=== PATIENT | male | born 1960 | race Caucasian/White ===

== ENCOUNTER 2025-02-10 05:36 | Inpatient (IN) | payer OTHER ==
[~2025-02-10] VITALS: Ht 172.7 cm; Wt 81.4 kg
[~2025-02-10 05:36] MED LIST: EZET10TA57 PO; FLUT16SP NASAL; RINGERS SOLUTION,LACTATED 1,000 ML IV ONE; TAMS0.4C94 PO
[2025-02-10 06:21] LABS: BASOPHILS % (AUTO) 0.6 % (0.0-2.0); EOSINOPHILS % (AUTO) 1.4 % (1.0-6.0); HEMATOCRIT 45.5 % (41-53); HEMOGLOBIN 15.5 g/dL (13.5-17.5); LYMPHOCYTES # (AUTO) 1.5 K/uL (1.0-4.8); LYMPHOCYTES % (AUTO) 29.3 % (22.0-44.0); MEAN CORPUSCULAR HEMOGLOBIN 30.9 pg (26.0-34.0); MEAN CORPUSCULAR VOLUME 91 fL (80-100); MONOCYTES # (AUTO) 0.4 K/uL (0.1-1.0); MONOCYTES % (AUTO) 6.9 % (2.0-9.0); NEUTROPHILS # (AUTO) 3.2 K/uL (1.8-7.7); NEUTROPHILS % (AUTO) 61.8 % (40.0-70.0); PLATELET COUNT (AUTO) 295 K/uL (150-450); RED CELL DISTRIBUTION WIDTH 12.5 % (11.5-14.5); WHITE BLOOD COUNT (AUTO) 5.1 K/uL (4.5-11.0)
[2025-02-10 06:30] LABS: ANION GAP 8 mmol/L (8-16); CALCIUM, TOTAL 8.7 mg/dL (8.8-10.5); CARBON DIOXIDE 30 mmol/L (22-29); CHLORIDE 105 mmol/L (98-107); GLOMERULAR FILTR. RATE CALC > 60 mL/min (>60); GLUCOSE,RANDOM 113 mg/dL (70-110); POTASSIUM 4.5 mmol/L (3.5-5.1); SODIUM SERUM 143 mmol/L (136-145); UREA NITROGEN, BLOOD 17 mg/dL (7-18)
[2025-02-10] MEDS: CHLORHEXIDINE GLUCONATE 2% TOWELETTE [2'S/6'S] TP ONE (06:32)
[2025-02-10] MEDS: RINGERS SOLUTION,LACTATED 1,000 ML IV ONE (06:32)
[2025-02-10] MEDS: ETHYL ALCOHOL 62% ANTISEPTIC NASAL SANITIZER 0.6 ML AMPUL NASAL ONE (06:32)
[2025-02-10] MEDS: BUPIVACAINE LIPOSOME/PF 1.3%-13.3MG/ML SUSP 20 ML VIAL INJ ONE (06:45)
[2025-02-10] MEDS ORDERED: VANCOMYCIN HCL 1 GM VIAL ONE (06:48)
[2025-02-10] MEDS ORDERED: MEPERIDINE-PF 25 MG/ML VIAL IVP PRN (07:15)
[2025-02-10] MEDS: CELECOXIB 200 MG CAPSULE PO ONE (07:21)
[2025-02-10] MEDS: BUPIVACAINE HCL/PF 0.5% 30 ML VIAL ONE (07:50)
[2025-02-10] MEDS: OXYGEN THERAPY IH SCH (08:00)
[2025-02-10] MEDS ORDERED: ZOLPIDEM TARTRATE 5 MG TABLET PO PRN (08:00)
[2025-02-10] MEDS ORDERED: ONDANSETRON HCL 4 MG/2 ML VIAL IVP PRN (08:00)
[2025-02-10] MEDS ORDERED: CYCLOBENZAPRINE HCL 10 MG TABLET PO PRN (08:00)
[2025-02-10] MEDS ORDERED: RINGERS SOLUTION,LACTATED 1,000 ML IV ONE (08:49)
[2025-02-10] MEDS ORDERED: BENZOCAINE/MENTHOL [CEPACOL] LOZENGE PO PRN (09:30)
[2025-02-10] MEDS ORDERED: MAG HYDROX/ALUMINUM HYD/SIMETH 30 ML SUSPENSION UDCUP PO PRN (09:30)
[2025-02-10] MEDS ORDERED: DiphenhydrAMINE HCL 50 MG/ML VIAL IVP PRN (09:30)
[2025-02-10] MEDS ORDERED: FentaNYL CITRATE PF 100 MCG/2 ML VIAL ONE (09:46)
[2025-02-10] MEDS: FentaNYL CITRATE PF 100 MCG/2 ML VIAL IVP PRN (09:47)
[2025-02-10] MEDS ORDERED: HYDROmorphone HCL 2 MG/ML SYRINGE ONE (09:59)
[2025-02-10] MEDS: HYDROmorphone HCL 2 MG/ML SYRINGE IVP PRN ×2 (10:05→13:59)
[2025-02-10] MEDS ORDERED: ACETAMINOPHEN/ISO-OSM 1000 MG/100 ML BOTTLE IV ONE (12:00)
[2025-02-10] MEDS ORDERED: METOPROLOL TARTRATE 5 MG/5 ML VIAL IVP ONE (12:00)
[2025-02-10] MEDS ORDERED: CeFAZolin SODIUM 1 GM VIAL IVP ONE (12:00)
[2025-02-10] MEDS ORDERED: SUGAMMADEX SODIUM 200 MG/2 ML VIAL IVP ONE (12:00)
[2025-02-10] MEDS ORDERED: TRANEXAMIC ACID 1,000 MG/10 ML VIAL IVP ONE (12:00)
[2025-02-10] MEDS ORDERED: ROCURONIUM BROMIDE 10 MG/ML 5 ML VIAL IVP ONE (12:00)
[2025-02-10] MEDS ORDERED: 0.9% SODIUM CHLORIDE 10 ML VIAL IVP ONE (12:00)
[2025-02-10] MEDS ORDERED: MIDAZOLAM HCL 2 MG/2 ML VIAL IVP ONE (12:00)
[2025-02-10] MEDS ORDERED: HYDROmorphone HCL 2 MG/ML SYRINGE IVP ONE (12:00)
[2025-02-10] MEDS ORDERED: PROPOFOL 1% 20 ML VIAL IVP ONE (12:00)
[2025-02-10] MEDS ORDERED: FentaNYL CITRATE PF 100 MCG/2 ML VIAL IVP ONE (12:00)
[2025-02-10] MEDS ORDERED: LIDOCAINE/PF 2% 5 ML VIAL IM ONE (12:00)
[2025-02-10] MEDS ORDERED: ONDANSETRON HCL 4 MG/2 ML VIAL IVP ONE (12:00)
[2025-02-10] MEDS ORDERED: DEXAMETHASONE SOD PHOS 4 MG/ML VIAL IVP ONE (12:00)
[2025-02-10] MEDS: TAMSULOSIN HCL 0.4 MG CAPSULE PO SCH ×2 (12:55→20:32)
[2025-02-10] MEDS: ACETAMINOPHEN 1000 MG/ISO-OSM 100 ML IV SCH (13:03)
[2025-02-10 14:13] VITALS: BP 138/92; PULSE 84; RESP 20; TEMP 98.5; O2SAT 94
[2025-02-10] MEDS ORDERED: INFLUENZA VIRUS VACCINE TVS (6MO+) 2024-25/PF 45 MCG/0.5 ML SYRINGE IM. ONE (14:45)
[2025-02-10] MEDS: CeFAZolin 2 GM/DEXTROSE 50 ML IV SCH (14:45)
[2025-02-10 16:05] VITALS: BP 151/89; PULSE 82; RESP 18; TEMP 98; O2SAT 96
[2025-02-10 16:10] VITALS: PULSE 82; RESP 18; O2SAT 96
[2025-02-10] MEDS: ONDANSETRON HCL 4 MG/2 ML VIAL IVP PRN (17:18)
[2025-02-10] MEDS: OxyCODONE HCL 5 MG IR TABLET PO PRN (18:17)
[2025-02-10 20:29] VITALS: BP 136/83; PULSE 87; RESP 18; TEMP 97.9; O2SAT 96
[2025-02-10] MEDS: FAMOTIDINE 20 MG TABLET PO SCH (20:32)
[2025-02-10] MEDS: DOCUSATE SODIUM 100 MG CAPSULE PO SCH (20:47)
[2025-02-10] MEDS: ZOLPIDEM TARTRATE 10 MG TABLET PO PRN (23:11)
[2025-02-11 04:14] VITALS: BP 131/70; PULSE 93; RESP 18; TEMP 98.1; O2SAT 95
[2025-02-11 07:52] LABS: BASOPHILS % (AUTO) 0.1 % (0.0-2.0); EOSINOPHILS % (AUTO) 0.1 % (1.0-6.0); HEMATOCRIT 38.4 % (41-53); LYMPHOCYTES # (AUTO) 1.7 K/uL (1.0-4.8); LYMPHOCYTES % (AUTO) 18.3 % (22.0-44.0); MEAN CORPUSCULAR HEMOGLOBIN 30.5 pg (26.0-34.0); MEAN CORPUSCULAR HGB CONC 33.8 G/dL (31.0-37.0); MEAN CORPUSCULAR VOLUME 90 fL (80-100); MONOCYTES # (AUTO) 0.9 K/uL (0.1-1.0); MONOCYTES % (AUTO) 9.3 % (2.0-9.0); NEUTROPHILS # (AUTO) 6.7 K/uL (1.8-7.7); NEUTROPHILS % (AUTO) 72.2 % (40.0-70.0); PLATELET COUNT (AUTO) 252 K/uL (150-450); RED BLOOD CELL COUNT(AUTO) 4.25 MIL/uL (4.50-5.90); RED CELL DISTRIBUTION WIDTH 12.1 % (11.5-14.5); WHITE BLOOD COUNT (AUTO) 9.3 K/uL (4.5-11.0)
[2025-02-11 08:06] VITALS: BP 133/81; PULSE 86; RESP 18; TEMP 98.7; O2SAT 96
[2025-02-11 08:22] LABS: ANION GAP 8 mmol/L (8-16); CALCIUM, TOTAL 8.3 mg/dL (8.8-10.5); CARBON DIOXIDE 27 mmol/L (22-29); CHLORIDE 98 mmol/L (98-107); CREATININE 0.91 mg/dL (0.60-1.30); GLOMERULAR FILTR. RATE CALC > 60 mL/min (>60); GLUCOSE,RANDOM 132 mg/dL (70-110); POTASSIUM 3.5 mmol/L (3.5-5.1); SODIUM SERUM 133 mmol/L (136-145); UREA NITROGEN, BLOOD 15 mg/dL (7-18)
[2025-02-11] MEDS: ASPIRIN 81 MG CHEWABLE TABLET PO SCH (08:54)
[2025-02-11] MEDS: FLUTICASONE PROPIONATE 50 MCG/SPRAY 16 GM NASAL SPRAY NASAL SCH (08:55)
[2025-02-11] MEDS: CELECOXIB 200 MG CAPSULE PO SCH (08:58)
[2025-02-11] MEDS: EZETIMIBE 10 MG TABLET PO SCH (08:59)
[2025-02-11] MEDS: OxyCODONE HCL/ACETAMINOPHEN 10-325 MG TABLET PO PRN (13:05)
[2025-02-11 15:42] VITALS: BP 139/81; PULSE 92; RESP 18; TEMP 98.4; O2SAT 97
[2025-02-11 19:50] VITALS: BP 143/88; PULSE 84; RESP 18; TEMP 98.2; O2SAT 95
[2025-02-12 05:59] VITALS: BP 136/91; PULSE 85; RESP 18; TEMP 97.9; O2SAT 96
[2025-02-12 06:58] LABS: BASOPHILS % (AUTO) 0.2 % (0.0-2.0); EOSINOPHILS % (AUTO) 0.4 % (1.0-6.0); HEMATOCRIT 38.7 % (41-53); LYMPHOCYTES # (AUTO) 1.8 K/uL (1.0-4.8); LYMPHOCYTES % (AUTO) 21.3 % (22.0-44.0); MEAN CORPUSCULAR HEMOGLOBIN 30.4 pg (26.0-34.0); MEAN CORPUSCULAR HGB CONC 33.5 G/dL (31.0-37.0); MEAN CORPUSCULAR VOLUME 91 fL (80-100); MONOCYTES # (AUTO) 0.9 K/uL (0.1-1.0); MONOCYTES % (AUTO) 11.2 % (2.0-9.0); NEUTROPHILS # (AUTO) 5.5 K/uL (1.8-7.7); NEUTROPHILS % (AUTO) 66.9 % (40.0-70.0); PLATELET COUNT (AUTO) 239 K/uL (150-450); RED BLOOD CELL COUNT(AUTO) 4.26 MIL/uL (4.50-5.90); RED CELL DISTRIBUTION WIDTH 12.2 % (11.5-14.5); WHITE BLOOD COUNT (AUTO) 8.3 K/uL (4.5-11.0)
[2025-02-12 08:23] VITALS: BP 127/85; PULSE 85; RESP 20; TEMP 98.3; O2SAT 98
[2025-02-12] MEDS ORDERED: CELE200 PO ×2 (13:42→13:51)
[2025-02-12] MEDS ORDERED: FAMO20 PO (13:42)
[2025-02-12] MEDS ORDERED: CYCL-448 PO (13:42)
[2025-02-12] MEDS ORDERED: OXYC-618 PO (13:42)
[2025-02-12] MEDS ORDERED: ASPI-1450 PO (13:51)
== END 2025-02-12 14:30 | disposition home health service (06) | DRG 470 ==
LOC: 5N 05:36 → 4E 11:05
PROVIDERS: ADMIT Internal Medicine; ATTEND Orthopaedic Surgery
PROC: 8E0YXBZ Computer Assisted Procedure of Lower Extremity (ICD-10-PCS; 2025-02-10)
PROC: 0SRD0J9 Replacement of Left Knee Joint with Synthetic Substitute, Cemented, Open Approach (ICD-10-PCS; principal; 2025-02-10 07:25)
DX: M17.12 Unilateral primary osteoarthritis, left knee (principal); E78.5 Hyperlipidemia, unspecified; N40.1 Benign prostatic hyperplasia with lower urinary tract symptoms; J30.9 Allergic rhinitis, unspecified; R33.8 Other retention of urine; Z79.82 Long term (current) use of aspirin; Z79.899 Other long term (current) drug therapy
CPT/HCPCS: 80048; 85025; 87081; 97110; 97116; 97162; 97166; 97530; 97535; G0238; G0378; J0131; J0666; J0690; J1100; J1171; J2250; J2405; J2704; J3010; J3370; J3490; J7120